=== PATIENT | male | born 1975 | race African-American/Black ===

== ENCOUNTER 2023-06-20 04:45 | Emergency (ER) | payer BC ==
[~2023-06-20] VITALS: Ht 172.7 cm; Wt 91.2 kg
[2023-06-20 04:50] VITALS: BP 133/95; PULSE 108; RESP 16; TEMP 97.2; O2SAT 98
[2023-06-20] MEDS ORDERED: NACL 0.9% 1,000 ML IV ONE (06:05)
[2023-06-20] MEDS ORDERED: KETOROLAC 30 MG/ML VIAL IVP ONE (06:10)
[2023-06-20 06:41] LABS: BASOPHILS # (AUTO) 0.1 K/uL (0.00-0.22); BASOPHILS % (AUTO) 0.6 % (0.0-2.0); EOSINOPHILS # (AUTO) 0.1 K/uL (0-0.4); EOSINOPHILS % (AUTO) 1.1 % (0.0-4.0); HEMATOCRIT 36.3 % (36-52); LYMPHOCYTES # (AUTO) 0.8 K/uL (2.0-11.5); LYMPHOCYTES % (AUTO) 6.8 % (20.5-51.1); MEAN CORPUSCULAR HEMOGLOBIN 27 pg (27-31); MEAN CORPUSCULAR HGB CONC 33 g/dL (33-37); MEAN CORPUSCULAR VOLUME 81.4 fL (80-94); MONOCYTES # (AUTO) 0.8 K/uL (0.8-1.0); MONOCYTES % (AUTO) 7.6 % (1.7-9.3); NEUTROPHILS # (AUTO) 9.4 K/uL (1.8-7.7); NEUTROPHILS % (AUTO) 83.9 % (42.2-75.2); PLATELET COUNT (AUTO) 659 K/uL (140-450); RED BLOOD CELL COUNT(AUTO) 4.45 MIL/uL (4.20-6.10); RED CELL DISTRIBUTION WIDTH 14.7 % (11.6-13.7); WHITE BLOOD COUNT (AUTO) 11.2 K/uL (4.8-10.8)
[2023-06-20 06:57] LABS: ANION GAP 14.4 (8-16); CALCIUM 8.8 mg/dL (8.5-10.1); CREATININE 1.2 mg/dL (0.6-1.3); POTASSIUM 4.4 mmol/L (3.5-5.1); TOTAL BILIRUBIN 2.4 mg/dL (0.0-1.0); TOTAL PROTEIN, SERUM 7.6 g/dL (6.4-8.2)
[2023-06-20] MEDS ORDERED: ACET-10509 PO (11:48)
[2023-06-20 12:44] VITALS: BP 121/67; PULSE 83; RESP 18; TEMP 97.3; O2SAT 100
== END 2023-06-20 12:44 | disposition home or self-care (01) ==
LOC: MED 04:45
DX: S72.301A Unspecified fracture of shaft of right femur, initial encounter for closed fracture (principal); M25.551 Pain in right hip; R32 Unspecified urinary incontinence; X58.XXXA Exposure to other specified factors, initial encounter; Y92.89 Other specified places as the place of occurrence of the external cause; Y93.89 Activity, other specified; Y99.8 Other external cause status
CPT/HCPCS: 36415; 73552; 80053; 85025; 96361; 96374; 99285; J1885; J7030

== ENCOUNTER 2023-06-20 22:46 | Inpatient (IN) | payer BC ==
[~2023-06-20] VITALS: Ht 175.3 cm; Wt 68.0 kg
[~2023-06-20 22:46] MED LIST: ACET-10509 PO
[2023-06-20 23:10] VITALS: BP 162/112; PULSE 85; RESP 16; TEMP 98.4; O2SAT 99
[2023-06-21] LABS: HEMOGLOBIN 11.6 g/dL (12.0-18.0)
[2023-06-21 00:19] LABS: HEMATOCRIT 35.3 % (36-52); MEAN CORPUSCULAR HEMOGLOBIN 27 pg (27-31); MEAN CORPUSCULAR HGB CONC 33 g/dL (33-37); MEAN CORPUSCULAR VOLUME 81.5 fL (80-94); PLATELET COUNT (AUTO) 708 K/uL (140-450); RED BLOOD CELL COUNT(AUTO) 4.33 MIL/uL (4.20-6.10); WHITE BLOOD COUNT (AUTO) 9.3 K/uL (4.8-10.8)
[2023-06-21 00:26] LABS: EOSINOPHILS % (MANUAL) 2 % (0-4); LYMPHOCYTES % (MANUAL) 13 % (20-46); MONOCYTES % (MANUAL) 8 % (5-12)
[2023-06-21 00:41] LABS: ALANINE AMINOTRANSFERASE 116 U/L (12-78); ALBUMIN 3.2 g/dL (3.4-5.0); ALCOHOL, BLOOD < 3 mg/dL (<10); ALKALINE PHOSPHATASE 175 U/L (50-136); ANION GAP 13.5 (8-16); ASPARTATE AMINOTRANSFERASE 86 U/L (15-37); CARBON DIOXIDE 25.7 mmol/L (21-32); CHLORIDE 98 mmol/L (98-107); CREATININE 1.3 mg/dL (0.6-1.3); GFR ARICAN-AMERICAN 76 mL/min (>90); GFR NON ARICAN-AMERICAN 63 mL/min (>90); GLUCOSE 124 mg/dL (74-106); POTASSIUM 4.2 mmol/L (3.5-5.1); SODIUM SERUM 133 mmol/L (136-145); TOTAL BILIRUBIN 1.9 mg/dL (0.0-1.0); TOTAL PROTEIN, SERUM 7.7 g/dL (6.4-8.2); UREA NITROGEN, BLOOD 32 mg/dL (7-18)
[2023-06-21 00:43] LABS: ACETAMINOPHEN < 0.5 ug/ml (10-30); SALICYLATE < 2.8 mg/dL (2.8-20.0)
[2023-06-21 00:57] LABS: APPEARANCE,URINE CLEAR (CLEAR); BILIRUBIN,URINE 1+ (NEGATIVE); BLOOD, URINE NEGATIVE (NEGATIVE); LEUKOCYTE ESTERASE ,URINE NEGATIVE (NEGATIVE); NITRITE, URINE POSITIVE (NEGATIVE); PH,URINE 5.5 (5.0-9.0); PROTEIN,URINE 1+ (NEGATIVE); UGLUCOSE NEGATIVE (NEGATIVE)
[2023-06-21 01:11] LABS: AMPHETAMINE, URINE NEGATIVE ng/ml (NEG <=1000); BARBITURATE, URINE NEGATIVE ng/ml (NEG <=200); BENZODIAZEPINE, URINE POSITIVE ng/mL (NEG <=200); CANNABINOID, URINE POSITIVE ng/mL (NEG <=50); COCAINE, URINE NEGATIVE ng/mL (NEG <=300); OPIATE, URINE NEGATIVE ng/mL (NEG <=2000); PHENCYCLIDINE SCREEN,URINE NEGATIVE ng/mL (NEG <=25)
[2023-06-21 01:12] LABS: COLOR,URINE DARK YELLOW (YELLOW)
[2023-06-21 01:14] LABS: ICTOTEST NEGATIVE (NEGATIVE)
[2023-06-21 01:18] LABS: BACTERIA,URINE 1+ /HPF (None Seen); RBC,URINE 0-5 /HPF (0-5); SQUAMOUS EPITHELIAL CELL,UR 0-3 (FEW) /LPF (0-3 (FEW)); WBC,URINE 0-5 /HPF (0-5)
[2023-06-21] MEDS: OLANZapine 5 MG ODT PO SCH (21:16)
[2023-06-22] MEDS: OLANZapine 5 MG ODT PO SCH ×2 (08:48→21:22)
[2023-06-22] MEDS ORDERED: LORazepam 2 MG/ML VIAL IVP PRN (12:20)
[2023-06-22] MEDS ORDERED: ONDANSETRON 4 MG/2 ML VIAL IVP PRN (12:20)
[2023-06-22] MEDS ORDERED: MORPHINE SULFATE 2 MG/ML SYR IVP PRN (12:20)
[2023-06-22 17:01] VITALS: PULSE 95; RESP 18; O2SAT 99
[2023-06-22 17:29] VITALS: PULSE 95; RESP 18; O2SAT 99
[2023-06-22 20:00] VITALS: BP 113/66; PULSE 99; RESP 18; TEMP 97.6; O2SAT 98
[2023-06-23] VITALS: BP_SYST 99
[2023-06-23 04:00] VITALS: BP 117/75; PULSE 100; RESP 18; TEMP 97.2; O2SAT 96
[2023-06-23 08:00] VITALS: BP 111/74; PULSE 83; RESP 18; TEMP 97; O2SAT 98
[2023-06-23] MEDS: OLANZapine 5 MG ODT PO SCH ×2 (09:30→20:17)
[2023-06-23] MEDS ORDERED: LACTULOSE 20 GM/30 ML UDC PO PRN (12:20)
[2023-06-23] MEDS: POLYETHYLENE GLYCOL 17 GM/PKT PO SCH ×2 (13:35→20:16)
[2023-06-23] MEDS: SENNA 8.6 MG TAB PO SCH ×2 (13:35→20:16)
[2023-06-23 14:44] VITALS: O2SAT 97
[2023-06-23 20:00] VITALS: PULSE 94; RESP 18; O2SAT 99
[2023-06-24 08:00] VITALS: PULSE 71; RESP 20; O2SAT 97
[2023-06-24] MEDS: SENNA 8.6 MG TAB PO SCH ×2 (09:08→20:19)
[2023-06-24] MEDS: OLANZapine 5 MG ODT PO SCH ×2 (09:08→20:19)
[2023-06-24] MEDS: POLYETHYLENE GLYCOL 17 GM/PKT PO SCH ×2 (09:08→20:19)
[2023-06-24 11:13] LABS: BASOPHILS # (AUTO) 0.1 K/uL (0.00-0.22); BASOPHILS % (AUTO) 0.5 % (0.0-2.0); EOSINOPHILS # (AUTO) 0.4 K/uL (0-0.4); EOSINOPHILS % (AUTO) 4.5 % (0.0-4.0); HEMATOCRIT 34.1 % (36-52); HEMOGLOBIN 11.5 g/dL (12.0-18.0); LYMPHOCYTES # (AUTO) 1.2 K/uL (2.0-11.5); LYMPHOCYTES % (AUTO) 13.2 % (20.5-51.1); MEAN CORPUSCULAR HEMOGLOBIN 27 pg (27-31); MEAN CORPUSCULAR HGB CONC 34 g/dL (33-37); MEAN CORPUSCULAR VOLUME 81.3 fL (80-94); MONOCYTES # (AUTO) 0.8 K/uL (0.8-1.0); MONOCYTES % (AUTO) 8.2 % (1.7-9.3); NEUTROPHILS # (AUTO) 6.9 K/uL (1.8-7.7); NEUTROPHILS % (AUTO) 73.6 % (42.2-75.2); PLATELET COUNT (AUTO) 758 K/uL (140-450); RED BLOOD CELL COUNT(AUTO) 4.19 MIL/uL (4.20-6.10); RED CELL DISTRIBUTION WIDTH 14.7 % (11.6-13.7); WHITE BLOOD COUNT (AUTO) 9.4 K/uL (4.8-10.8)
[2023-06-24 11:20] LABS: ANION GAP 11.3 (8-16); CALCIUM 8.9 mg/dL (8.5-10.1); CARBON DIOXIDE 28.7 mmol/L (21-32); CREATININE 1.3 mg/dL (0.6-1.3)
[2023-06-24 20:00] VITALS: PULSE 96; RESP 16; O2SAT 98
[2023-06-25 08:00] VITALS: PULSE 99; RESP 18; O2SAT 97
[2023-06-25] MEDS: OLANZapine 5 MG ODT PO SCH ×2 (09:16→21:23)
[2023-06-25] MEDS: SENNA 8.6 MG TAB PO SCH ×2 (09:16→21:00)
[2023-06-25] MEDS: POLYETHYLENE GLYCOL 17 GM/PKT PO SCH ×2 (09:16→21:00)
[2023-06-25] MEDS: ACETAMINOPHEN 325 MG TAB PO PRN ×2 (13:15→21:40)
[2023-06-25 20:00] VITALS: BP 114/72; PULSE 74; PULSE 88; RESP 18; TEMP 97.2; O2SAT 100; O2SAT 97
[2023-06-26 04:00] VITALS: BP 119/71; PULSE 77; RESP 18; TEMP 97.2; O2SAT 97
[2023-06-26 08:00] VITALS: PULSE 79; RESP 18; O2SAT 97
[2023-06-26] MEDS: POLYETHYLENE GLYCOL 17 GM/PKT PO SCH ×2 (09:00→21:00)
[2023-06-26] MEDS: SENNA 8.6 MG TAB PO SCH ×2 (09:00→21:00)
[2023-06-26] MEDS: OLANZapine 5 MG ODT PO SCH ×2 (10:01→21:05)
[2023-06-26 20:00] VITALS: BP 135/69; PULSE 102; RESP 18; TEMP 98; O2SAT 98
[2023-06-27 04:00] VITALS: BP 111/79; PULSE 100; RESP 18; TEMP 97.8; O2SAT 95
[2023-06-27 08:00] VITALS: PULSE 67; RESP 18; O2SAT 97
[2023-06-27] MEDS: POLYETHYLENE GLYCOL 17 GM/PKT PO SCH (08:55)
[2023-06-27] MEDS: SENNA 8.6 MG TAB PO SCH (08:55)
[2023-06-27] MEDS: OLANZapine 5 MG ODT PO SCH (08:55)
[2023-06-27 16:00] VITALS: BP 116/82; PULSE 99; RESP 19; TEMP 97.3; O2SAT 97
[2023-06-27 18:59] VITALS: BP 116/82; PULSE 99; RESP 19; TEMP 97.3
== END 2023-06-27 20:00 | DRG 641 ==
LOC: MED 22:46 → MMU 06-22 12:18 → OBSVTOIN 06-22 12:18 → MTU 06-22 15:14
PROVIDERS: ADMIT Internal Medicine; ATTEND Internal Medicine
DX: E87.1 Hypo-osmolality and hyponatremia (principal); E80.6 Other disorders of bilirubin metabolism; R74.01 Elevation of levels of liver transaminase levels; F20.9 Schizophrenia, unspecified
CPT/HCPCS: 36415; 70450; 71045; 76705; 80048; 80053; 80305; 81001; 82140; 84484; 85025; 87081; 87086; 93005; 97110; 97112; 97116; 97530; 99285; G0480; G0482; Q0092